=== PATIENT | male | born 1930 | race Caucasian/White ===

== ENCOUNTER 2017-07-05 04:36 | Observation (INO) ==
--- NOTE | 2017-07-05 04:48 | Emergency Department Note ---
Disposition Clinical Impression: ESRD (end stage renal disease), Community acquired pneumonia, Knee effusion, left, Atrial fibrillation Disposition: Admitted As Inpatient Condition: Good Referrals: NONE,PCP [Non-Partnered Physician] - Time of Disposition: 06:36 General Adult HPI - General Time Seen by Provider: 07/05/17 04:44 Source: patient, EMS Mode of arrival: EMS Limitations: no limitations Nursing Notes Reviewed: Yes Vital Signs Reviewed: Yes - History of Present Illness HPI Narrative: Patient presents to the ED with the chief complaint of dyspnea and left knee pain. Patient is a dialysis patient who dialyzes on Wednesday, Wednesday, Wednesday. States he has not missed his dialysis. He was woken up from sleep this morning with significant shortness of breath, which lasted about an hour and a half. During that time he had a very brief episode which she states was just 1 or 2 seconds of a sharp chest pain that went away immediately. States that the shortness of breath, was continuing, so he called EMS. By the time EMS got there, his shortness of breath is resolved. He states he feels back to his normal self. He is also complaining of left knee pain and swelling that was onset about a week and half ago. Reports he saw his primary care doctor and had an ultrasound that ruled out DVT. Denies any falls or trauma to the area. Reports the pain 6 out of 10 and 10 out of 10 when touching and moving his knee. No history of diabetes or coronary artery disease. He does take a baby aspirin daily, Lasix states he feels okay. No fever, chills, cough, abdominal pain, nausea, vomiting, diarrhea - Related Data Home Medications Medication Instructions Recorded Confirmed Aspirin Enteric Coated [Aspirin EC] 81 mg PO QAM 03/08/15 03/08/15 Calcium Acetate [Phos-LO] 667 mg PO DAILY 03/08/15 03/08/15 Cholecalciferol (Vitamin D3) 50,000 unit PO QAM 03/08/15 03/08/15 [Dialyvite Vitamin D3 Max] Metoprolol XL (24 HR) Succ [Toprol 25 mg PO QAM 03/08/15 03/08/15 XL] Previous Rx's Medication Instructions Recorded Cyclobenzaprine [Flexeril] 10 mg PO TID #20 tablet 03/04/15 TraMADol [Ultram] 50 mg PO TID #7 tablet 03/04/15 Epoetin Ramírez [Procrit] 10,000 unit SQ 3XW vial 03/13/15 Lidocaine Patch [Lidoderm 5% patch] 1 each TP DAILY #30 adh..patch 03/13/15 OxyCODONE/APAP 5/325 [Percocet 2 each PO Q6HR PRN #30 tablet 03/13/15 5/325 MG] Hydrocodone/Acetaminophen [[place] 1 tab PO TID PRN #15 tab 04/02/15 5-325 Tablet] Allergies Allergy/AdvReac Type Severity Reaction Status Date / Time No Known Allergies Allergy Verified 03/04/15 13:13 Review of Systems: As reviewed in the HPI. All other systems reviewed are negative or normal. Past Medical History - Past Medical History Attestation: Yes The following information was validated with the patient. Source: patient Medical history: Reports: dialysis, hypertension, renal disease Surgical history: Reports: orthopedic, other (right hip fracture repair) Psychiatric history: Reports: no psych history - Social History Smoking Status: Former smoker Smokeless Tobacco Status: No Alcohol use: Reports: none Drug use: Reports: none Physical Exam - General Limitations: no limitations General appearance: alert, in no apparent distress - Head Head exam: atraumatic, normocephalic, normal inspection - Eye Eye exam: Present: normal appearance, PERRL, EOMI - Chest Chest inspection: Present: normal inspection, symmetric chest wall rise - Respiratory Respiratory exam: Present: normal lung sounds bilaterally - Cardiovascular Cardiovascular exam: Present: regular rate, irregular rhythm - Abdominal Exam Abdominal exam: Present: soft, Non-Tender. Absent: tenderness, distention, guarding, rebound, rigidity - Extremities Exam Extremities exam: Present: other (Left arm dialysis fistula) - Expanded Lower Extremity Exam Knee exam: Present: tenderness, swelling, pain with varus, laxity with varus, knee extension intact. Absent: normal inspection, full ROM, deformity, crepitus , dislocation, erythema - Neurological Exam Neurological exam: Present: alert, oriented X3 - Psychiatric Psychiatric exam: Present: normal affect, normal mood - Skin Skin exam: Present: warm, dry, intact, normal color Course Course Narrative: Patient presenting with shortness of breath and a few episodes of chest pain. Does dialyze Wednesday, Wednesday, Wednesday and will be due today. Is having left knee pain. We will check labs, chest x-ray and x-rays knee. He is requesting that if anything needs to be done to his knee or if there is a fracture that he see Dr. Cummings as he has seen him previously and likes him. - Reevaluation(s) Reevaluation #1: Admitted to the hospital service under Dr. Santoro. 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 Time: 06:36 Vital Signs Temperature 99.8 F H 07/05/17 04:40 Pulse Rate 106 07/05/17 04:40 Respiratory Rate 20 07/05/17 04:40 Blood Pressure 180/156 07/05/17 04:40 O2 Sat by Pulse Oximetry 98 07/05/17 04:40 Temperature 99.8 F H 07/05/17 04:40 Pulse Rate 128 07/05/17 06:10 Respiratory Rate 20 07/05/17 06:10 Blood Pressure 178/82 07/05/17 06:10 O2 Sat by Pulse Oximetry 98 07/05/17 06:10 Oxygen Delivery Oxygen Delivery Nasal Cannula Medical Decision Making - Medical Records Medical records reviewed: Yes I reviewed the patient's medical records. - Lab Data Lab results reviewed: Yes I reviewed the patient's lab results. Result diagrams: 07/05/17 04:50 07/05/17 04:50 Lab Results 07/05/17 07/05/17 07/05/17 Range/Units 04:50 04:50 04:50 WBC 7.1 (4.3-11.1) K/mcL RBC 3.45 L (4.19-5.50) M/mcL Hgb 11.3 L (12.9-16.9) g/dL Hct 35.3 L (37.5-50.1) % MCV 102.3 H (83.0-100.0) fL MCH 32.8 (28.0-33.3) pg MCHC 32.0 (31.6-35.5) g/dL RDW 12.9 (11.5-14.5) % Plt Count 354 (140-400) K/mcL MPV 9.4 (9.4-12.4) fL Immature Gran % 0.6 (0-4) % Seg Neutrophils % 77.4 % Lymphocytes % 7.5 % Monocytes % 12.2 % Eosinophils % 1.7 % Basophils % 0.6 % Neutrophils # 5.5 (1.6-8.9) K/mcL Lymphocytes # 0.5 L (0.6-4.6) K/mcL Monocytes # 0.9 (0.0-1.3) K/mcL Eosinophils # 0.1 (0.0-0.6) K/mcL Basophils # 0.0 (0.0-0.2) K/mcL Sodium 136 (136-145) mEq/L Potassium 5.8 H (3.5-5.1) mEq/L Chloride 96 L (98-107) mEq/L Carbon Dioxide 29 (23-29) mEq/L BUN 48 H (8-23) mg/dL Creatinine 7.67 H (0.70-1.30) mg/dL Est GFR ( Amer) 8 L (> 60) Est GFR (Non-Af Amer) 7 L (> 60) BUN/Creatinine Ratio 6 (6-26) Glucose 116 H (70-105) mg/dL Calculated Osmolality 296 (280-300) Lactic Acid 1.0 (0.5-2.2) mmol/L Calcium 9.0 (8.6-10.3) mg/dL Phosphorus 3.4 (2.7-4.5) mg/dL Troponin I 0.03 (< 0.04) ng/mL B-Natriuretic Peptide (Less than 100) pg/mL Albumin 3.3 L (3.5-5.7) g/dL 07/05/17 Range/Units 04:50 WBC (4.3-11.1) K/mcL RBC (4.19-5.50) M/mcL Hgb (12.9-16.9) g/dL Hct (37.5-50.1) % MCV (83.0-100.0) fL MCH (28.0-33.3) pg MCHC (31.6-35.5) g/dL RDW (11.5-14.5) % Plt Count (140-400) K/mcL MPV (9.4-12.4) fL Immature Gran % (0-4) % Seg Neutrophils % % Lymphocytes % % Monocytes % % Eosinophils % % Basophils % % Neutrophils # (1.6-8.9) K/mcL Lymphocytes # (0.6-4.6) K/mcL Monocytes # (0.0-1.3) K/mcL Eosinophils # (0.0-0.6) K/mcL Basophils # (0.0-0.2) K/mcL Sodium (136-145) mEq/L Potassium (3.5-5.1) mEq/L Chloride (98-107) mEq/L Carbon Dioxide (23-29) mEq/L BUN (8-23) mg/dL Creatinine (0.70-1.30) mg/dL Est GFR ( Amer) (> 60) Est GFR (Non-Af Amer) (> 60) BUN/Creatinine Ratio (6-26) Glucose (70-105) mg/dL Calculated Osmolality (280-300) Lactic Acid (0.5-2.2) mmol/L Calcium (8.6-10.3) mg/dL Phosphorus (2.7-4.5) mg/dL Troponin I (< 0.04) ng/mL B-Natriuretic Peptide 905 H (Less than 100) pg/mL Albumin (3.5-5.7) g/dL - Radiology Data Radiology results reviewed: Yes I reviewed the patient's radiology results. - EKG Data EKG #1 EKG attestation: Yes I reviewed and interpreted this EKG. EKG results narrative: A. fib, rate 112, QRS 145, QTC 407, right axis deviation, right bundle branch block that is unchanged from previous, morphology is similar to previous from 2015
[2017-07-05 05:13] LABS: Basophils % 0.6 %; Eosinophils # 0.1 K/mcL (0.0-0.6); Eosinophils % 1.7 %; Hematocrit 35.3 % (37.5-50.1); Hemoglobin 11.3 g/dL (12.9-16.9); Immature Granulocytes % 0.6 % (0-4); Lymphocytes # 0.5 K/mcL (0.6-4.6); Lymphocytes % 7.5 %; Mean Corpuscular Hemoglobin 32.8 pg (28.0-33.3); Mean Corpuscular Volume 102.3 fL (83.0-100.0); Mean Platelet Volume 9.4 fL (9.4-12.4); Monocytes # 0.9 K/mcL (0.0-1.3); Monocytes % 12.2 %; Neutrophils # 5.5 K/mcL (1.6-8.9); Platelet Count 354 K/mcL (140-400); Red Blood Count 3.45 M/mcL (4.19-5.50); Red Cell Distribution Width 12.9 % (11.5-14.5); Segmented Neutrophils % 77.4 %
[2017-07-05 05:35] LABS: Troponin I 0.03 ng/mL (< 0.04)
[2017-07-05 05:39] LABS: Albumin 3.3 g/dL (3.5-5.7); Phosphorous 3.4 mg/dL (2.7-4.5); Potassium 5.8 mEq/L (3.5-5.1)
[2017-07-05] MEDS ORDERED: Azithromycin 500 MG in D5% in Water 250 ML IVPB ONE (06:21)
[2017-07-05] MEDS ORDERED: cefTRIAXone 1,000 MG in Water for inj. (sterile) 20 ML 10 ML IVPB ONE (06:21)
--- NOTE | 2017-07-05 06:33 | Emergency Department Note ---
Disposition Clinical Impression: ESRD (end stage renal disease), Community acquired pneumonia, Knee effusion, left, Atrial fibrillation Disposition: Admitted As Inpatient Condition: Good Referrals: NONE,PCP [Non-Partnered Physician] - General Adult HPI - General Chief complaint: ED Shortness of Breath/Dyspnea Time Seen by Provider: 07/05/17 04:44 Source: patient, EMS Mode of arrival: EMS Limitations: no limitations Nursing Notes Reviewed: Yes Vital Signs Reviewed: Yes - History of Present Illness Pain Scale: 9 - Related Data Home Medications Medication Instructions Recorded Confirmed Aspirin Enteric Coated [Aspirin EC] 81 mg PO QAM 03/08/15 03/08/15 Calcium Acetate [Phos-LO] 667 mg PO DAILY 03/08/15 03/08/15 Cholecalciferol (Vitamin D3) 50,000 unit PO QAM 03/08/15 03/08/15 [Dialyvite Vitamin D3 Max] Metoprolol XL (24 HR) Succ [Toprol 25 mg PO QAM 03/08/15 03/08/15 XL] Previous Rx's Medication Instructions Recorded Cyclobenzaprine [Flexeril] 10 mg PO TID #20 tablet 03/04/15 TraMADol [Ultram] 50 mg PO TID #7 tablet 03/04/15 Epoetin Ramírez [Procrit] 10,000 unit SQ 3XW vial 03/13/15 Lidocaine Patch [Lidoderm 5% patch] 1 each TP DAILY #30 adh..patch 03/13/15 OxyCODONE/APAP 5/325 [Percocet 2 each PO Q6HR PRN #30 tablet 03/13/15 5/325 MG] Hydrocodone/Acetaminophen [[place] 1 tab PO TID PRN #15 tab 04/02/15 5-325 Tablet] Allergies Allergy/AdvReac Type Severity Reaction Status Date / Time No Known Allergies Allergy Verified 03/04/15 13:13 Past Medical History - Past Medical History Medical history: Reports: dialysis, hypertension, renal disease Surgical history: Reports: orthopedic, other (right hip fracture repair) Psychiatric history: Reports: no psych history - Social History Smoking Status: Former smoker Smokeless Tobacco Status: No Alcohol use: Reports: none Drug use: Reports: none Physical Exam - General Limitations: no limitations General appearance: alert, in no apparent distress Course Vital Signs Temperature 99.8 F H 07/05/17 04:40 Pulse Rate 106 07/05/17 04:40 Respiratory Rate 20 07/05/17 04:40 Blood Pressure 180/156 07/05/17 04:40 O2 Sat by Pulse Oximetry 98 07/05/17 04:40 Temperature 99.8 F H 07/05/17 04:40 Pulse Rate 128 07/05/17 06:10 Respiratory Rate 20 07/05/17 06:10 Blood Pressure 178/82 07/05/17 06:10 O2 Sat by Pulse Oximetry 98 07/05/17 06:10 Oxygen Delivery Oxygen Delivery Nasal Cannula Medical Decision Making - Lab Data Result diagrams: 07/05/17 04:50 07/05/17 04:50 Lab Results 07/05/17 07/05/17 07/05/17 Range/Units 04:50 04:50 04:50 WBC 7.1 (4.3-11.1) K/mcL RBC 3.45 L (4.19-5.50) M/mcL Hgb 11.3 L (12.9-16.9) g/dL Hct 35.3 L (37.5-50.1) % MCV 102.3 H (83.0-100.0) fL MCH 32.8 (28.0-33.3) pg MCHC 32.0 (31.6-35.5) g/dL RDW 12.9 (11.5-14.5) % Plt Count 354 (140-400) K/mcL MPV 9.4 (9.4-12.4) fL Immature Gran % 0.6 (0-4) % Seg Neutrophils % 77.4 % Lymphocytes % 7.5 % Monocytes % 12.2 % Eosinophils % 1.7 % Basophils % 0.6 % Neutrophils # 5.5 (1.6-8.9) K/mcL Lymphocytes # 0.5 L (0.6-4.6) K/mcL Monocytes # 0.9 (0.0-1.3) K/mcL Eosinophils # 0.1 (0.0-0.6) K/mcL Basophils # 0.0 (0.0-0.2) K/mcL Sodium 136 (136-145) mEq/L Potassium 5.8 H (3.5-5.1) mEq/L Chloride 96 L (98-107) mEq/L Carbon Dioxide 29 (23-29) mEq/L BUN 48 H (8-23) mg/dL Creatinine 7.67 H (0.70-1.30) mg/dL Est GFR ( Amer) 8 L (> 60) Est GFR (Non-Af Amer) 7 L (> 60) BUN/Creatinine Ratio 6 (6-26) Glucose 116 H (70-105) mg/dL Calculated Osmolality 296 (280-300) Lactic Acid 1.0 (0.5-2.2) mmol/L Calcium 9.0 (8.6-10.3) mg/dL Phosphorus 3.4 (2.7-4.5) mg/dL Troponin I 0.03 (< 0.04) ng/mL B-Natriuretic Peptide (Less than 100) pg/mL Albumin 3.3 L (3.5-5.7) g/dL 07/05/17 Range/Units 04:50 WBC (4.3-11.1) K/mcL RBC (4.19-5.50) M/mcL Hgb (12.9-16.9) g/dL Hct (37.5-50.1) % MCV (83.0-100.0) fL MCH (28.0-33.3) pg MCHC (31.6-35.5) g/dL RDW (11.5-14.5) % Plt Count (140-400) K/mcL MPV (9.4-12.4) fL Immature Gran % (0-4) % Seg Neutrophils % % Lymphocytes % % Monocytes % % Eosinophils % % Basophils % % Neutrophils # (1.6-8.9) K/mcL Lymphocytes # (0.6-4.6) K/mcL Monocytes # (0.0-1.3) K/mcL Eosinophils # (0.0-0.6) K/mcL Basophils # (0.0-0.2) K/mcL Sodium (136-145) mEq/L Potassium (3.5-5.1) mEq/L Chloride (98-107) mEq/L Carbon Dioxide (23-29) mEq/L BUN (8-23) mg/dL Creatinine (0.70-1.30) mg/dL Est GFR ( Amer) (> 60) Est GFR (Non-Af Amer) (> 60) BUN/Creatinine Ratio (6-26) Glucose (70-105) mg/dL Calculated Osmolality (280-300) Lactic Acid (0.5-2.2) mmol/L Calcium (8.6-10.3) mg/dL Phosphorus (2.7-4.5) mg/dL Troponin I (< 0.04) ng/mL B-Natriuretic Peptide 905 H (Less than 100) pg/mL Albumin (3.5-5.7) g/dL Attestation Statement - Attestation Attestation: I, Juan Wade MD, personally evaluated this patient and discussed their management with the resident physician. I reviewed the resident's note and agree with the documented findings, medical decision making, and plan of care. 86-year-old male presents to the emergency department by ambulance with a complaint of severe left knee pain and swelling which started about 10 days prior to arrival. He was seen about one week ago at the ID and had an ultrasound of the leg with no blood clots. Patient states that tonight he had an acute onset of shortness of breath. Some chest discomfort. No definite fever. He called 911 and by the time the ambulance arrived shortness of breath had pretty much resolved. There has been a mild cough. On examination patient is a well-developed well-nourished elderly male in no acute distress. He is alert and oriented 3. There is no cyanosis or diaphoresis. Chest is nontender to palpation. Breath sounds are decreased but equal bilaterally with no rales or wheezes noted. Heart irregularly irregular with a mild tachycardia. Abdomen soft and nontender with normal bowel sounds. There is a large effusion of the left knee with tenderness to palpation and also pain with any movement or palpation. There is no erythema and it is not warm to touch. Neurovascular function is intact distally. Labs reviewed. Chest x-ray shows left basilar atelectasis versus pneumonia. X- ray of the left knee shows osteoarthritis and effusion with no fracture. EKG shows atrial fibrillation with RVR with ventricular rate of 112. Right bundle branch block. The hospitalist, Dr. Santoro, was consulted and accepted admission of the patient.
[2017-07-05] MEDS ORDERED: Naloxone 0.4 MG/ML INJ IVP PRN (07:43)
--- NOTE | 2017-07-05 08:07 | Internal Med History&Physical ---
Date of Encounter: 07/05/17 Time of Encounter: 08:05 Internal Medicine - H&P: HPI Chief complaint: knee pain History of present illness: Mr. Montes is a 86 year old male Past Med Surg Social Fam HX - Past Medical History Medical history: dialysis, hypertension, renal disease Psychiatric history: no psych history - Past Surgical History Surgical History: orthopedic, other - Social History Smoking Status: Former smoker Smokeless Tobacco Status: No Alcohol use: none Drug use: none - Family History Father Hx Family Cardiac Disorders: Yes ([place]) Mother Hx Family Cancer: Yes (Bone) Sister Hx Family Cancer: Yes (Breast) Brother Hx Family Cardiac Disorders: Yes ([place]) Internal Medicine - H&P: Meds Cyclobenzaprine [Flexeril] 10 mg PO TID #20 tablet 03/04/15 [Rx] TraMADol [Ultram] 50 mg PO TID #7 tablet 03/04/15 [Rx] Aspirin Enteric Coated [Aspirin EC] 81 mg PO QAM 03/08/15 [History] Calcium Acetate [Phos-LO] 667 mg PO DAILY 03/08/15 [History] Cholecalciferol (Vitamin D3) [Dialyvite Vitamin D3 Max] 50,000 unit PO QAM 03/08 [History] Metoprolol XL (24 HR) Succ [Toprol XL] 25 mg PO QAM 03/08/15 [History] Epoetin Ramírez [Procrit] 10,000 unit SQ 3XW vial 03/13/15 [Rx] Lidocaine Patch [Lidoderm 5% patch] 1 each TP DAILY #30 adh..patch 03/13/15 [Rx] OxyCODONE/APAP 5/325 [Percocet 5/325 MG] 2 each PO Q6HR PRN #30 tablet 03/13/15 [Rx] Hydrocodone/Acetaminophen [[place] 5-325 Tablet] 1 tab PO TID PRN #15 tab [Rx] 3 Allergy/AdvReac Type Severity Reaction Status Date / Time No Known Allergies Allergy Verified 03/04/15 13:13 All Systems PM: A 10-system review of systems was performed and is negative for pertinent findings except as documented above in the HPI. Review of systems: All systems reviewed and negative except for what is mentioned in history of present illness - Constitutional Vitals: Temp Pulse Resp BP Pulse Ox 99.8 F H 113 20 142/85 96 07/05/17 04:40 07/05/17 07:09 07/05/17 07:09 07/05/17 07:09 07/05/17 07:09 Vital signs as above Gen.: No acute distress, cooperative, able to speak in full sentences HEENT: Atraumatic, normocephalic, extraocular are intact, PERRL, there is no scleral icterus Neck: JVD no pain to palpation Heart: Normal S1-S2 regular rate and rhythm Lungs: Clear to auscultation Abdomen: Soft, nontender, nondistended, positive bowel sounds, no guarding, no rigidity Musculoskeletal: Left arm fistula, left knee palpable effusion, pain to palpation, no surrounding erythema, no warmth to palpation , no open wound over the knee , lower extremity edema Neuro: Nonfocal, no lateralization, comas are intact Skin: No new rash Psychiatry: Normal affect Internal Med - H&P Results - Labs CBC & Chem 7: 07/05/17 04:50 07/05/17 04:50 - Assessment and plan (1) Atrial fibrillation Current Visit: Yes Status: Acute Assessment and plan: History of atrial fibrillation Patient notes he has been on Coumadin in the past but due to internal bleeding this was discontinued. Patient notes that in the future will not restart a blood thinner due to history of internal bleeding requiring large volume blood transfusion Continuous cardiac technician (2) Community acquired pneumonia Current Visit: Yes Status: Acute (3) Knee effusion, left Current Visit: Yes Status: Acute (4) ESRD (end stage renal disease) Current Visit: Yes Status: Chronic (5) DVT prophylaxis Current Visit: No Status: Acute (6) Anemia Current Visit: No Status: Chronic Qualifiers: Anemia type: other cause Qualified Code(s): N18.9 - Chronic kidney disease , unspecified - Time Spent With Patient Total time spent is greater than 50% in coordination of care (as documented) at patient's floor/unit and/or counseling patient:
--- NOTE | 2017-07-05 08:24 | Nephrology Consult Note ---
Date of Encounter: 07/05/17 Time of Encounter: 08:21 Assessment and Plan (1) ESRD (end stage renal disease) Current Visit: Yes Status: Chronic Patient has end-stage renal disease. He is stable from a renal perspective. Blood pressure is controlled. Hemoglobin is 11.3. Potassium is 5.8 social dialyze today on a 2K bath. Orthopedic evaluation is pending. (2) Benign hypertension with ESRD (end-stage renal disease) Current Visit: Yes Status: Acute (3) Bilateral primary osteoarthritis of knee Current Visit: Yes Status: Acute (4) Knee effusion, left Current Visit: Yes Status: Acute (5) Atrial fibrillation Current Visit: Yes Status: Acute Qualifiers: Atrial fibrillation type: chronic Qualified Code(s): I48.2 - Chronic atrial fibrillation History of Present Illness - History of Present Illness This is an 86-year-old male's been followed for many years for end-stage renal disease. Patient receives dialysis every Wednesday and . Patient was admitted after presenting to the emergency room with a history of worsening left knee pain and swelling. Patient has a history of severe degenerative joint disease involving both of his knees. He has failed several conservative therapeutic approaches. Approximately 10 days ago or so he developed some swelling around the knee. X-ray shows he does have a joint effusion as well as evidence of severe osteoarthritis. Patient was having increasing pain and difficulty ventilating and subsequently came to the emergency room for further evaluation and management. Patient has some transient shortness of breath. Chest x-ray was reportedly abnormal. Patient was diagnosed with pneumonia based on chest x-ray findings. Patient denies any cough sputum production fever chills. He is no longer expressing any shortness of breath. Patient scheduled for his usual dialysis today. Past Med Surg Social Fam HX - Past Medical History Medical history: dialysis, hypertension, renal disease Psychiatric history: no psych history - Past Surgical History Surgical History: orthopedic, other - Social History Smoking Status: Former smoker Smokeless Tobacco Status: No Alcohol use: none Drug use: none - Family History Father Hx Family Cardiac Disorders: Yes ([place]) Mother Hx Family Cancer: Yes (Bone) Sister Hx Family Cancer: Yes (Breast) Brother Hx Family Cardiac Disorders: Yes ([place]) Medications and Allergies Cyclobenzaprine [Flexeril] 10 mg PO TID #20 tablet 03/04/15 [Rx] TraMADol [Ultram] 50 mg PO TID #7 tablet 03/04/15 [Rx] Aspirin Enteric Coated [Aspirin EC] 81 mg PO QAM 03/08/15 [History] Calcium Acetate [Phos-LO] 667 mg PO DAILY 03/08/15 [History] Cholecalciferol (Vitamin D3) [Dialyvite Vitamin D3 Max] 50,000 unit PO QAM 03/08 [History] Metoprolol XL (24 HR) Succ [Toprol XL] 25 mg PO QAM 03/08/15 [History] Epoetin Ramírez [Procrit] 10,000 unit SQ 3XW vial 03/13/15 [Rx] Lidocaine Patch [Lidoderm 5% patch] 1 each TP DAILY #30 adh..patch 03/13/15 [Rx] OxyCODONE/APAP 5/325 [Percocet 5/325 MG] 2 each PO Q6HR PRN #30 tablet 03/13/15 [Rx] Hydrocodone/Acetaminophen [[place] 5-325 Tablet] 1 tab PO TID PRN #15 tab [Rx] 3 Allergy/AdvReac Type Severity Reaction Status Date / Time No Known Allergies Allergy Verified 03/04/15 13:13 Review of Systems Constitutional: as per HPI Eyes: bilateral: blurred vision (patient denies), diplopia (patient denies) Nose, mouth and throat: no dizziness, no headache(s) Cardiovascular: dyspnea on exertion, no chest pain, no palpitations Respiratory: dyspnea on exertion Gastrointestinal: no abdominal pain, no change in bowel habits Musculoskeletal: as per HPI Musculoskeletal: left: knee pain, knee stiffness, knee swelling Integumentary: no hirsutism, no striae Neurological: as per HPI Psychiatric: no depression, no difficulty concentrating Endocrine: as per HPI Exam - Vital Signs Vital signs: Initial Vital Signs Temp Pulse Resp BP Pulse Ox 99.8 F H 106 20 180/156 98 07/05/17 04:40 07/05/17 04:40 07/05/17 04:40 07/05/17 04:40 07/05/17 04:40 Vital Signs - Last 8 Hours Pulse Resp BP Pulse Ox 07/05/17 07:09 113 20 142/85 96 Intake and Output 07/04/17 07/05/17 07/05/17 23:59 07:59 15:59 Intake Total 0 / 0 Output Total 0 / 0 Balance 0 / 0 Intake: Oral 0 / 0 Output: Urine 0 / 0 - General Appearance Exam: Patient is alert and oriented. He is in no acute distress. Lung sounds otherwise clear to auscultation. No wheezing rales or rhonchi. Heart irregular rate and rhythm consistent with atrial fibrillation. Abdomen shows bowel sounds braze masses in megaly or tenderness. The left knee has an obvious joint effusion. There is no redness nor erythema nor heat. There is some mild swelling of the left ankle. Right lower extremity does not have any significant edema. There is a functioning AV fistula in the left upper extremity. Results - Lab Results 07/05/17 04:50 07/05/17 04:50 Most recent lab results Calcium 9.0 mg/dL (8.6-10.3) 07/05/17 04:50 Phosphorus 3.4 mg/dL (2.7-4.5) 07/05/17 04:50 Consult Discharge Plan - Plan
[2017-07-05] MEDS ORDERED: 0.9 % Sodium Chloride 250 ML IVC PRN (08:26)
--- NOTE | 2017-07-05 09:30 | Internal Med History&Physical ---
Date of Encounter: 07/05/17 Time of Encounter: 09:27 Internal Medicine - H&P: HPI Chief complaint: left leg knee pain History of present illness: Mr. Montes is a 86 year old male history of end-stage renal disease, hypertension was has a complaint of left lower extremity edema particularly knee pain. Patient notes he has been battling left knee pain and swelling last week. Patient notes he was seen at the [facility] and had a left lower extremity ultrasound that was negative for DVT. Patient notes that he does have history of osteoarthritis of bilateral knees. Patient denies fever, chills or rigors. Patient actually denies cough or sputum production. He denies chest pain or shortness of breath, questioning. Patient denies orthopnea , PND. He denies abdominal pain, nausea vomiting. There is no melena or hematochezia. Patient voices no other concerns. Patient notes that reason he came to the hospital was for his left knee pain. Patient to be admitted for further evaluation. Past Med Surg Social Fam HX - Past Medical History Medical history: dialysis, hypertension, renal disease Psychiatric history: no psych history - Past Surgical History Surgical History: orthopedic, other - Social History Smoking Status: Former smoker Smokeless Tobacco Status: No Alcohol use: none Drug use: none - Family History Father Hx Family Cardiac Disorders: Yes ([place]) Mother Hx Family Cancer: Yes (Bone) Sister Hx Family Cancer: Yes (Breast) Brother Hx Family Cardiac Disorders: Yes ([place]) Internal Medicine - H&P: Meds Aspirin Enteric Coated [Aspirin EC] 81 mg PO QAM 03/08/15 [History] Calcium Acetate [Phos-LO] 667 mg PO DAILY 03/08/15 [History] Cetirizine HCl [Zyrtec] 10 mg PO DAILY 07/05/17 [History] Cholecalciferol (D-3) [Vitamin D] 1,000 unit PO DAILY 07/05/17 [History] Cinacalcet [Sensipar] 30 mg PO MOWEFR 07/05/17 [History] Folic Acid/Vit Bcomp,C [Dialyvite Tablet] 1 tab PO DAILY 07/05/17 [History] Metoprolol [Lopressor] 25 mg PO BID 07/05/17 [History] 3 Allergy/AdvReac Type Severity Reaction Status Date / Time No Known Allergies Allergy Verified 03/04/15 13:13 All Systems PM: A 10-system review of systems was performed and is negative for pertinent findings except as documented above in the HPI. Review of systems: All systems reviewed and negative except what is mentioned in history of present illness - Constitutional Vitals: Temp Pulse Resp BP Pulse Ox 99.8 F H 113 20 142/85 96 07/05/17 04:40 07/05/17 07:09 07/05/17 07:09 07/05/17 07:09 07/05/17 07:09 Vital signs as above Gen.: Present distress, cooperative, able to speak in full sentences HEENT: Atraumatic, normocephalic, extra movements are intact, PERRL, there is no scleral icterus Neck: No JVD, no pinna palpation, full range of motion Heart: Irregularly irregular Lungs: His breath sounds in bases, rales or rhonchi appreciated Abdomen: Soft, nontender, nondistended, positive bowel sounds, no guarding, no rigidity Musculoskeletal: Patient moves all 4 extremities freely,left knee joint effusion , no overlying signs of cellulitis, bilateral pedal edema appears at baseline neuro: non focal, no lateralization , CN intact Psychiatry: Normal affect Internal Med - H&P Results - Labs CBC & Chem 7: 07/05/17 04:50 07/05/17 04:50 Labs: Cardiac Enzymes 07/05/17 Range/Units 08:03 Troponin I 0.04 H* (< 0.04) ng/mL - Assessment and plan (1) Atrial fibrillation Current Visit: Yes Status: Acute Assessment and plan: History of atrial fibrillation Patient not on anticoagulation due to history of internal bleeding per patient report. rate controlled at this time. Elevated troponin is flat, likely secondary to renal failure , patient when asked denies every having chest pain or anginal equivalent. Qualifiers: Atrial fibrillation type: chronic Qualified Code(s): I48.2 - Chronic atrial fibrillation (2) Community acquired pneumonia Current Visit: Yes Status: Acute Assessment and plan: Patient diagnosed with community acquired pneumonia in the emergency department At this time patient denies cough or sputum production. Denies shortness of breath. X-ray shows left basilar atelectasis versus pneumonia. Patient has received empiric antibiotics in the emergency department. Given patient denies chest symptoms at this time, we will repeat chest x-ray versus noncontrast CT scan after dialysis. Patient remains afebrile, without respirator symptoms, without leukocytosis, without fever. Check respiratory viral panel Further recommendations pending above Qualifiers: Qualified Code(s): J18.9 - Pneumonia, unspecified organism (3) Knee effusion, left Current Visit: Yes Status: Acute Assessment and plan: Left knee joint effusion. I have spoken with who will evaluate patient today in consultation. Recommendations appreciated. Patient has history of osteoarthritis and uses likely an exacerbation At this time there is no fever, no leukocytosis. No overlying signs of cellulitis. Patient denies fall or trauma to his left knee, no evidence of ecchymosis, patient not on anticoagulation. Patient notes symptoms have been ongoing for approximately 1 week There is also some lower extremity edema. The left leg and patientwas evaluated at the [place] with a venous ultrasound. Patient notes ultrasound was negative for DVT per patient report. (4) ESRD (end stage renal disease) Current Visit: Yes Status: Chronic Assessment and plan: ESRD on hemodialysis Nephrology consulted (5) DVT prophylaxis Current Visit: No Status: Acute Assessment and plan: SCD's for DVT prophylaxis Patient notes he had LLE US last week at [place] [facility] for LLE edema, negative for DVT. (6) Anemia Current Visit: No Status: Chronic Assessment and plan: History of internal bleeding per patient report Anemia likely multifactorial, No signs of bleeding at this time Monitor CBC Qualifiers: Anemia type: other cause Qualified Code(s): D64.89 - Other specified anemias - Time Spent With Patient Total time spent is greater than 50% in coordination of care (as documented) at patient's floor/unit and/or counseling patient:
[2017-07-05 09:37] LABS: Hepatitis B Surface Antibody 1.13 mIU/mL; Hepatitis B Surface Antigen Nonreactive (Nonreactive)
[2017-07-05] MEDS ORDERED: 0.9 % Sodium Chloride 1,000 ML ONE (14:59)
[2017-07-05 17:11] LABS: Adenovirus Not Detected (Not Detect); Bordetella Pertussis Not Detected (Not Detect); Chlamydophila pneumoniae Not Detected (Not Detect); Coronavirus 229E Not Detected (Not Detect); Coronavirus HKU1 Not Detected (Not Detect); Coronavirus NL63 Not Detected (Not Detect); Coronavirus OC43 Not Detected (Not Detect); Human Metapneumovirus Not Detected (Not Detect); Human Rhinovirus/Enterovirus Not Detected (Not Detect); Influenza A Subtype 2009 H1 Not Detected (Not Detect); Influenza A Untypeable Not Detected (Not Detect); Influenza B Not Detected (Not Detect); Mycoplasma pneumoniae Not Detected (Not Detect); Parainfluenza Virus 1 Not Detected (Not Detect); Parainfluenza Virus 2 Not Detected (Not Detect); Parainfluenza Virus 3 Not Detected (Not Detect); Parainfluenza Virus 4 Not Detected (Not Detect); Respiratory Syncytial Virus Not Detected (Not Detect)
--- NOTE | 2017-07-05 21:21 | Orthopedic Consult Note ---
Date of Encounter: 07/05/17 Time of Encounter: 21:19 History of Present Illness HPI: Mr. Montes is a 86 year old male Past Med Surg Social Fam HX - Past Medical History Medical history: dialysis, hypertension, renal disease Psychiatric history: no psych history - Past Surgical History Surgical History: orthopedic, other - Social History Smoking Status: Former smoker Smokeless Tobacco Status: No Alcohol use: none Drug use: none - Family History Father Hx Family Cardiac Disorders: Yes ([place]) Mother Hx Family Cancer: Yes (Bone) Sister Hx Family Cancer: Yes (Breast) Brother Hx Family Cardiac Disorders: Yes ([place]) Medications and Allergies Aspirin Enteric Coated [Aspirin EC] 81 mg PO QAM 03/08/15 [History] Calcium Acetate [Phos-LO] 667 mg PO DAILY 03/08/15 [History] Cetirizine HCl [Zyrtec] 10 mg PO DAILY 07/05/17 [History] Cholecalciferol (D-3) [Vitamin D] 1,000 unit PO DAILY 07/05/17 [History] Cinacalcet [Sensipar] 30 mg PO MOWEFR 07/05/17 [History] Folic Acid/Vit Bcomp,C [Dialyvite Tablet] 1 tab PO DAILY 07/05/17 [History] Metoprolol [Lopressor] 25 mg PO BID 07/05/17 [History] 3 Allergy/AdvReac Type Severity Reaction Status Date / Time No Known Allergies Allergy Verified 03/04/15 13:13 All Systems Reviewed: The remainder of the systems were reviewed and are negative Physical Exam - Constitutional Vitals: Temp Pulse Resp BP Pulse Ox 97.6 F 123 17 132/75 93 07/05/17 20:33 07/05/17 20:33 07/05/17 20:33 07/05/17 20:33 07/05/17 20:33 Results - Labs Result Diagrams: 07/05/17 04:50 07/05/17 04:50 Labs: Abnormal lab results RBC 3.45 M/mcL (4.19-5.50) L 07/05/17 04:50 Hgb 11.3 g/dL (12.9-16.9) L 07/05/17 04:50 Hct 35.3 % (37.5-50.1) L 07/05/17 04:50 MCV 102.3 fL (83.0-100.0) H 07/05/17 04:50 Lymphocytes # 0.5 K/mcL (0.6-4.6) L 07/05/17 04:50 Potassium 5.8 mEq/L (3.5-5.1) H 07/05/17 04:50 Chloride 96 mEq/L (98-107) L 07/05/17 04:50 BUN 48 mg/dL (8-23) H 07/05/17 04:50 Creatinine 7.67 mg/dL (0.70-1.30) H 07/05/17 04:50 Est GFR ( Amer) 8 (> 60) L 07/05/17 04:50 Est GFR (Non-Af Amer) 7 (> 60) L 07/05/17 04:50 Glucose 116 mg/dL (70-105) H 07/05/17 04:50 POC Glucose 106 mg/dL (70-99) H 07/05/17 11:01 B-Natriuretic Peptide 905 pg/mL (Less than 100) H 07/05/17 04:50 Albumin 3.3 g/dL (3.5-5.7) L 07/05/17 04:50 All other labs normal. - Diagnostic results Knee x-ray: image reviewed Consult Discharge Plan - Plan Referrals: Rolando Mack DO [Primary Care Provider] -
--- NOTE | 2017-07-05 21:34 | Orthopedics Progress Note ---
Date of Encounter: 07/05/17 Time of Encounter: 21:27 Subjective Principal diagnosis: Left knee pain Interval history: Orthopedic consult/unable to dictate under consult heading Mr. Sunil Montes's a very pleasant 86-year-old gentleman well known to me from previous treatment of both a right hip fracture requiring surgery nearly 5 years ago as well as more recent treatment for bilateral knee osteoarthritis. The patient states that about 10 days ago he awoke with left knee pain. The patient states that he did nothing different the day before. He did not have any swelling initially. The patient however had extreme difficulty with activities including walking. He states that all about 3 days later he developed swelling in the left knee. He denies any acute trauma. Denies any fevers shakes chills. The patient has had previous treatment in the form of steroid injections and viscose supplementation in the past with limited relief. At one time we were considering proceeding with total knee arthroplasty. I have reviewed the patient's current history and physical exam including medical history. Pertinent orthopedic examination reveals bilateral varus knees. Left knee shows a moderate effusion. There is no evidence of erythema or other signs suggestive of an infection. The patient is quite tender along the lateral side of the knee. Positive lateral Apley's. Some medial joint line tenderness. Examination is somewhat limited due to the pain elicited. Laboratory data includes a normal WBC. No evidence of an infectious agent on serology testing. I reviewed an x-ray of the knee. This reveals an end stage arthritic knee with bone to bone contact in both the medial compartment and the patellofemoral joint. These are similar to x-rays obtained in my office over a year ago. Impression: Left knee effusion secondary to end-stage osteoarthritis Recommendation: I discussed this at length with the patient. I do not identify any evidence to suggest that we are dealing with an infection in the knee. For treatment purposes if there are no contraindications, I would consider proceeding with a intra-articular steroid injection. Can do this after approval from the medical service has been obtained. Thank you very much for allowing me to see care for Mr. Montes. Sincerely, Eilseo Cummings,DO Objective Vital signs: Vital Signs Temp Pulse Resp BP Pulse Ox 07/05/17 20:33 97.6 F 123 17 132/75 93 07/05/17 19:10 97.6 F 15 139/70 07/05/17 18:55 123/63 07/05/17 18:40 146/62 07/05/17 18:25 145/67 07/05/17 18:10 134/68 07/05/17 17:55 137/71 07/05/17 17:40 141/66 07/05/17 17:25 152/72 07/05/17 17:10 172/74 07/05/17 16:55 172/79 07/05/17 16:40 162/72 07/05/17 16:25 173/82 07/05/17 16:10 97.4 F L 18 172/99 07/05/17 10:54 97.4 F L 122 20 97 07/05/17 07:09 113 20 142/85 96 Intake and Output 07/05/17 07/05/17 07/05/17 07:59 15:59 23:59 Intake Total 0 / 0 720 / 720 Output Total 0 / 0 3600 / 3600 Balance 0 / 0 -2880 / -2880 Intake: Oral 0 / 0 120 / 120 Intake, Rinseback and Flushes 600 / 600 Output: Urine 0 / 0 0 / 0 Total Dialysis (HD) Output 3600 / 3600 Other: Meal Dinner Percent of Meal Consumed 90% # Voids 0 # Bowel Movements 0 Blood Glucose* 106 Hemodialysis Net Fluid Removed 3000 (mL) - Diagnostic Results Knee x-ray: image reviewed - Labs CBC & BMP: 07/05/17 04:50 07/05/17 04:50 Labs: Abnormal lab results RBC 3.45 M/mcL (4.19-5.50) L 07/05/17 04:50 Hgb 11.3 g/dL (12.9-16.9) L 07/05/17 04:50 Hct 35.3 % (37.5-50.1) L 07/05/17 04:50 MCV 102.3 fL (83.0-100.0) H 07/05/17 04:50 Lymphocytes # 0.5 K/mcL (0.6-4.6) L 07/05/17 04:50 Potassium 5.8 mEq/L (3.5-5.1) H 07/05/17 04:50 Chloride 96 mEq/L (98-107) L 07/05/17 04:50 BUN 48 mg/dL (8-23) H 07/05/17 04:50 Creatinine 7.67 mg/dL (0.70-1.30) H 07/05/17 04:50 Est GFR ( Amer) 8 (> 60) L 07/05/17 04:50 Est GFR (Non-Af Amer) 7 (> 60) L 07/05/17 04:50 Glucose 116 mg/dL (70-105) H 07/05/17 04:50 POC Glucose 106 mg/dL (70-99) H 07/05/17 11:01 B-Natriuretic Peptide 905 pg/mL (Less than 100) H 07/05/17 04:50 Albumin 3.3 g/dL (3.5-5.7) L 07/05/17 04:50 Consult Discharge Plan - Plan Referrals: Rolando Mack DO [Primary Care Provider] -
[2017-07-05] MEDS ORDERED: *HR* Metoprolol 5 MG/5 ML VIAL IVP ONE (23:39)
[2017-07-06 05:42] LABS: Basophils # 0.1 K/mcL (0.0-0.2); Basophils % 0.7 %; Eosinophils # 0.1 K/mcL (0.0-0.6); Hematocrit 35.7 % (37.5-50.1); Hemoglobin 11.2 g/dL (12.9-16.9); Immature Granulocytes % 0.4 % (0-4); Lymphocytes # 0.5 K/mcL (0.6-4.6); Lymphocytes % 6.9 %; Mean Corpuscular HGB Conc 31.4 g/dL (31.6-35.5); Mean Corpuscular Hemoglobin 31.9 pg (28.0-33.3); Mean Corpuscular Volume 101.7 fL (83.0-100.0); Mean Platelet Volume 9.3 fL (9.4-12.4); Monocytes # 0.9 K/mcL (0.0-1.3); Monocytes % 13.5 %; Neutrophils # 5.4 K/mcL (1.6-8.9); Platelet Count 342 K/mcL (140-400); Red Blood Count 3.51 M/mcL (4.19-5.50); Segmented Neutrophils % 77.5 %
[2017-07-06 05:48] LABS: INR 1.4; Prothrombin Time 15.1 Seconds (9.4-12.1)
[2017-07-06 06:00] LABS: Albumin/Globulin Ratio 0.8 (1.1-2.2); Bilirubin,Total 0.6 mg/dL (0.3-1.0); Calcium 8.8 mg/dL (8.6-10.3); Globulin 3.9 g/dL (2.4-3.5); Potassium 4.8 mEq/L (3.5-5.1); Total Protein 6.9 g/dL (6.4-8.9)
--- NOTE | 2017-07-06 09:35 | Electrocardiograph Report ---
[address] [address] Test Date: 2017-07-05 Pat Name: Sunil Montes Department: 103 Room: 2A32 Gender: M Casting Inspector: TRUE : 1930 Requested By: [id number] Order Number: [id number] Reading MD: Rachelle Burnett Measurements Intervals Dawson Rate: 112 P: AK: 0 QRS: 111 QRSD: 145 T: -6 QT: 341 QTc: 407 Interpretive Statements ATRIAL FIBRILLATION WITH RAPID VENTRICULAR RESPONSE RIGHT AXIS DEVIATION [QRS AXIS > 100] RIGHT BUNDLE BRANCH BLOCK [120+ ms QRS DURATION, UPRIGHT V1, 40+ ms S IN I/aVL/V4/V5/V6] Electronically Signed On 07-06-2017 9:34:25 EDT by Rachelle Burnett
--- NOTE | 2017-07-06 11:05 | Internal Med Progress Note ---
Date of Encounter: 07/06/17 Time of Encounter: 11:03 - Assessment and plan (1) Knee effusion, left Current Visit: Yes Status: Acute Assessment and plan: Orthopedics consulted. Okay to give steroids injections from my standpoint's. I want to talk to orthopedic to see if they want any further imaging including an MRI. Patient is not able to bend his left knee at all. (2) Atrial fibrillation Current Visit: Yes Status: Acute Assessment and plan: History of atrial fibrillation. He is not on anticoagulation due to history of internal bleeding. His heart rate is in the 130s and is in A. fib. I have restarted his beta kaya. We will see what his heart rate does the rest of the day. We will monitor. Qualifiers: Atrial fibrillation type: chronic Qualified Code(s): I48.2 - Chronic atrial fibrillation (3) Anemia Current Visit: No Status: Chronic Assessment and plan: History of internal bleeding per patient report Anemia likely multifactorial, No signs of bleeding at this time Monitor CBC Qualifiers: Anemia type: other cause Qualified Code(s): D64.89 - Other specified anemias (4) ESRD (end stage renal disease) Current Visit: Yes Status: Chronic Assessment and plan: ESRD on hemodialysis Nephrology consulted (5) Community acquired pneumonia Current Visit: Yes Status: Acute Assessment and plan: Received antibiotics in the ED. No signs of an infection on labs or symptoms arise. We will hold off on further antibiotics. Qualifiers: Qualified Code(s): J18.9 - Pneumonia, unspecified organism (6) DVT prophylaxis Current Visit: No Status: Acute Assessment and plan: SCD's for DVT prophylaxis Patient notes he had LLE US last week at [facility] for LLE edema, negative for DVT. - Time Spent With Patient Total time spent is greater than 50% in coordination of care (as documented) at patient's floor/unit and/or counseling patient: - Subjective Interval history: Patient was seen and examined. No acute events. His heart rate is in the 130s and A. fib however he has a history of it. He has not received his beta kaya today. Admitted with left knee swelling that has been going on for about a week or so. It was sudden with no history of trauma. Afebrile. - Constitutional Vitals: Temp Pulse Resp BP Pulse Ox 97.8 F 130 18 162/72 94 07/06/17 10:46 07/06/17 10:46 07/06/17 10:46 07/06/17 10:46 07/06/17 10:46 Exam: GEN: NAD CVS: RRR. S1, S2, No m/r/g RESP: CTAB ABD: Soft, NT, ND, +BS EXT: Bilateral knee swelling noted more prominent on the left knee medially.. 2 + DP. No rashes NEURO: Nonfocal Internal Medicine: Result - Labs CBC & Chem 7: 07/06/17 05:31 07/06/17 05:31 Labs: Short CBC 07/06/17 Range/Units 05:31 WBC 7.0 (4.3-11.1) K/mcL Hgb 11.2 L (12.9-16.9) g/dL Hct 35.7 L (37.5-50.1) % Plt Count 342 (140-400) K/mcL Neutrophils # 5.4 (1.6-8.9) K/mcL BMP 07/06/17 05:31 Sodium 137 Potassium 4.8 Chloride 94 L Carbon Dioxide 32 H BUN 27 H Creatinine 5.13 H Glucose 122 H Calcium 8.8 Cardiac Enzymes 07/05/17 07/05/17 Range/Units 13:57 20:07 Troponin I 0.03 0.03 (< 0.04) ng/mL Liver Function 07/06/17 Range/Units 05:31 Total Bilirubin 0.6 (0.3-1.0) mg/dL AST 17 (13-39) Units/L ALT 9 (7-52) Units/L Alkaline Phosphatase 94 (34-104) Units/L Albumin 3.0 L (3.5-5.7) g/dL - ABG Interpretation ABG results: PT/INR, D-dimer PT 15.1 Seconds (9.4-12.1) H 07/06/17 05:31 Consult Discharge Plan - Plan Referrals: Rolando Mack DO [Primary Care Provider] -
[2017-07-06] MEDS: Cholecalciferol (D-3) 1,000 UNIT TABLET PO SCH (12:28)
[2017-07-06] MEDS: Loratadine 10 MG TABLET PO SCH (12:28)
[2017-07-06] MEDS: Aspirin Enteric Coated 81 MG Tablet PO SCH (12:28)
[2017-07-06] MEDS: Calcium Acetate 667 MG CAPSULE PO SCH (12:28)
[2017-07-06] MEDS ORDERED: Lidocaine 1% 20 ML MDV ID ONE ×2 (16:31→22:45)
[2017-07-06] MEDS ORDERED: MethylPREDNISolone Acet(DEPOT) 80 MG/ML VIAL INTRAART ONE (16:33)
[2017-07-06] MEDS ORDERED: Dexamethasone 4 MG/ML VIAL IVP ONE ×2 (16:34→22:45)
[2017-07-06] MEDS: Multivit/Ca/Min/Fe/FA 1 TAB TABLET PO SCH (17:27)
--- NOTE | 2017-07-06 23:32 | Orthopedics Progress Note ---
Date of Encounter: 07/06/17 Time of Encounter: 23:30 Subjective Principal diagnosis: Left knee pain Interval history: Orthopedic consult/unable to dictate under consult heading Mr. Sunil Montes's a very pleasant 86-year-old gentleman well known to me from previous treatment of both a right hip fracture requiring surgery nearly 5 years ago as well as more recent treatment for bilateral knee osteoarthritis. The patient states that about 10 days ago he awoke with left knee pain. The patient states that he did nothing different the day before. He did not have any swelling initially. The patient however had extreme difficulty with activities including walking. He states that all about 3 days later he developed swelling in the left knee. He denies any acute trauma. Denies any fevers shakes chills. The patient has had previous treatment in the form of steroid injections and viscose supplementation in the past with limited relief. At one time we were considering proceeding with total knee arthroplasty. I have reviewed the patient's current history and physical exam including medical history. Pertinent orthopedic examination reveals bilateral varus knees. Left knee shows a moderate effusion. There is no evidence of erythema or other signs suggestive of an infection. The patient is quite tender along the lateral side of the knee. Positive lateral Apley's. Some medial joint line tenderness. Examination is somewhat limited due to the pain elicited. Laboratory data includes a normal WBC. No evidence of an infectious agent on serology testing. I reviewed an x-ray of the knee. This reveals an end stage arthritic knee with bone to bone contact in both the medial compartment and the patellofemoral joint. These are similar to x-rays obtained in my office over a year ago. Impression: Left knee effusion secondary to end-stage osteoarthritis Recommendation: I discussed this at length with the patient. I do not identify any evidence to suggest that we are dealing with an infection in the knee. For treatment purposes if there are no contraindications, I would consider proceeding with a intra-articular steroid injection. Can do this after approval from the medical service has been obtained. Thank you very much for allowing me to see care for Mr. Montes. Sincerely, Eliseo Cummings,DO 07/06/2017 patient continues to have left knee pain. Informed consent was obtained for arthrocentesis and steroid injection. Leg was prepped with alcohol followed by infiltration of the lateral suprapatellar region with approximately 5 mL's of 1% lidocaine solution. The leg was now prepped with ChloraPrep. Arthrocentesis was performed with return of only about 10 mL's of clear thick korin fluid. The knee was then instilled with approximately 5 mL's of 1% lidocaine, right ear milligrams of Depo-Medrol and 8 mg of Decadron solution. Needle was withdrawn and sterile Band-Aid was applied. Patient tolerated the procedure without difficulty. Encourage patient to move the knee. Utilize ice offenders any pain with for the next several days. Objective Vital signs: Vital Signs Temp Pulse Resp BP Pulse Ox 07/06/17 20:48 96 07/06/17 20:18 97.9 F 97 18 124/71 96 07/06/17 15:30 97.9 F 116 17 126/63 93 07/06/17 10:46 97.8 F 130 18 162/72 94 07/06/17 07:02 98.0 F 129 18 141/77 95 07/06/17 04:22 97.7 F 108 18 163/71 93 07/06/17 00:45 113 17 122/69 93 07/06/17 00:15 103 17 130/72 92 Intake and Output 07/06/17 07/06/17 07/06/17 07:59 15:59 23:59 Intake Total 480 / 480 120 / 120 Output Total 0 / 0 Balance 480 / 480 120 / 120 Intake: Oral 480 / 480 120 / 120 Output: Urine 0 / 0 Left Nephrostomy 0 / 0 Other: Meal Lunch Dinner Percent of Meal Consumed 40% 10% Stool Size Moderate Stool Consistency soft Stool Characteristics Normal for Patient Stool Color Brown # Bowel Movements 1 0 Weight 71.5 kg Patient Weight 07/06/17 23:59 Weight 71.5 kg - Labs CBC & BMP: 07/06/17 05:31 07/06/17 05:31 Labs: Abnormal lab results RBC 3.51 M/mcL (4.19-5.50) L 07/06/17 05:31 Hgb 11.2 g/dL (12.9-16.9) L 07/06/17 05:31 Hct 35.7 % (37.5-50.1) L 07/06/17 05:31 MCV 101.7 fL (83.0-100.0) H 07/06/17 05:31 MCHC 31.4 g/dL (31.6-35.5) L 07/06/17 05:31 MPV 9.3 fL (9.4-12.4) L 07/06/17 05:31 Lymphocytes # 0.5 K/mcL (0.6-4.6) L 07/06/17 05:31 PT 15.1 Seconds (9.4-12.1) H 07/06/17 05:31 Chloride 94 mEq/L (98-107) L 07/06/17 05:31 Carbon Dioxide 32 mEq/L (23-29) H 07/06/17 05:31 BUN 27 mg/dL (8-23) H 07/06/17 05:31 Creatinine 5.13 mg/dL (0.70-1.30) H 07/06/17 05:31 Est GFR ( Amer) 13 (> 60) L 07/06/17 05:31 Est GFR (Non-Af Amer) 11 (> 60) L 07/06/17 05:31 BUN/Creatinine Ratio 5 (6-26) L 07/06/17 05:31 Glucose 122 mg/dL (70-105) H 07/06/17 05:31 POC Glucose 106 mg/dL (70-99) H 07/05/17 11:01 B-Natriuretic Peptide 905 pg/mL (Less than 100) H 07/05/17 04:50 Albumin 3.0 g/dL (3.5-5.7) L 07/06/17 05:31 Globulin 3.9 g/dL (2.4-3.5) H 07/06/17 05:31 Albumin/Globulin Ratio 0.8 (1.1-2.2) L 07/06/17 05:31 HDL Cholesterol 31 mg/dL (40-59) L 07/06/17 05:31 Consult Discharge Plan - Plan Referrals: Rolando Mack DO [Primary Care Provider] - 07/15/17 1:30 pm (Please follow up as schedule...)
[2017-07-07 06:57] LABS: Basophils % 0.2 %; Hematocrit 35.7 % (37.5-50.1); Hemoglobin 11.2 g/dL (12.9-16.9); Immature Granulocytes % 0.4 % (0-4); Lymphocytes # 0.2 K/mcL (0.6-4.6); Mean Corpuscular HGB Conc 31.4 g/dL (31.6-35.5); Mean Corpuscular Hemoglobin 31.5 pg (28.0-33.3); Mean Corpuscular Volume 100.6 fL (83.0-100.0); Mean Platelet Volume 9.6 fL (9.4-12.4); Monocytes # 0.1 K/mcL (0.0-1.3); Monocytes % 2.6 %; Neutrophils # 5.1 K/mcL (1.6-8.9); Platelet Count 317 K/mcL (140-400); Red Blood Count 3.55 M/mcL (4.19-5.50); Segmented Neutrophils % 92.8 %
[2017-07-07 07:32] LABS: Calcium 8.8 mg/dL (8.6-10.3); Magnesium 2.1 mg/dL (1.6-2.6); Potassium 5.9 mEq/L (3.5-5.1)
[2017-07-07] MEDS ORDERED: 0.9 % Sodium Chloride 250 ML IVC PRN (08:28)
--- NOTE | 2017-07-07 08:28 | Nephrology Progress Note ---
Date of Encounter: 07/07/17 Time of Encounter: 08:26 - Assessment and Plan (1) ESRD (end stage renal disease) Current Visit: Yes Status: Chronic Patient will undergo dialysis today. Potassium is 5.9 so he will have a 2K bath. (2) Benign hypertension with ESRD (end-stage renal disease) Current Visit: Yes Status: Acute (3) Bilateral primary osteoarthritis of knee Current Visit: Yes Status: Acute (4) Knee effusion, left Current Visit: Yes Status: Acute (5) Atrial fibrillation Current Visit: Yes Status: Acute Qualifiers: Atrial fibrillation type: chronic Qualified Code(s): I48.2 - Chronic atrial fibrillation Subjective Principal diagnosis: Left knee pain Interval history: Patient underwent aspiration of his knee joint yesterday. He reports he has less discomfort. He has not been up walking as of yet. He scheduled her usual dialysis today. Objective - Vital Signs Vital signs: Vital Signs Temp Pulse Resp BP Pulse Ox 07/07/17 07:08 97.6 F 81 16 129/61 97 07/07/17 05:24 97.7 F 89 16 127/71 90 07/06/17 23:42 98.1 F 99 17 118/74 96 07/06/17 20:48 96 07/06/17 20:18 97.9 F 97 18 124/71 96 07/06/17 15:30 97.9 F 116 17 126/63 93 07/06/17 10:46 97.8 F 130 18 162/72 94 Intake and Output 07/06/17 07/07/17 07/07/17 23:59 07:59 15:59 Intake Total 770 / 770 0 / 0 Output Total 0 / 0 0 / 0 Balance 770 / 770 0 / 0 Intake: Oral 270 / 270 0 / 0 Free Water 500 / 500 Output: Urine 0 / 0 0 / 0 Left Nephrostomy 0 / 0 Other: Meal Dinner Percent of Meal Consumed 10% # Bowel Movements 0 Weight 75.2 kg Patient Weight 07/07/17 23:59 Weight 75.2 kg - Lab 07/07/17 06:29 07/07/17 06:29 Most recent lab results Calcium 8.8 mg/dL (8.6-10.3) 07/07/17 06:29 Phosphorus 3.4 mg/dL (2.7-4.5) 07/05/17 04:50 Magnesium 2.1 mg/dL (1.6-2.6) 07/07/17 06:29 Consult Discharge Plan - Plan Referrals: Rolando Mack DO [Primary Care Provider] - 07/15/17 1:30 pm (Please follow up as schedule...)
--- NOTE | 2017-07-07 09:11 | Discharge Summary ---
Orders not resulted at time of discharge: Pending orders 07/05/17 09:21 Legionella Antigen [RM] Stat S. Pneumoniae Antigen [RM] Stat 07/05/17 15:20 Culture,Throat [RM] Routine Streptococcus A Rapid Test [RM] Routine Date of Encounter: 07/07/17 Time of Encounter: 09:09 - Discharge Diagnosis (1) Knee effusion, left Priority: Primary Status: Acute (2) Atrial fibrillation Priority: Secondary Status: Acute Qualifiers: Atrial fibrillation type: chronic Qualified Code(s): I48.2 - Chronic atrial fibrillation (3) Anemia Priority: Secondary Status: Chronic Qualifiers: Anemia type: unspecified type Qualified Code(s): D64.9 - Anemia, unspecified (4) ESRD (end stage renal disease) Priority: Secondary Status: Chronic Hospital course: Mr. Montes is a 86 year old male with history of end-stage renal disease, hypertension was has a complaint of left knee pain. Patient notes he has been battling left knee pain and swelling last week. Patient notes he was seen at the [facility] and had a left lower extremity ultrasound that was negative for DVT. Patient notes that he does have history of osteoarthritis of bilateral knees. Patient was afebrile upon presentation. Laboratory workup was consistent with end-stage renal disease. The patient underwent x-ray of the knee which showed osteoarthritis with joint effusion with no actual. The patient was admitted as he was unable to ambulate. Orthopedics were consulted and believed it was osteoarthritis exacerbation. He has had steroids injections in the past and received one by orthopedics here. The following morning he was able to flex his knee and was able to get discharged. The patient was resumed on dialysis with nephrology consulted while hospitalized. He was discharged on 07/07. - Time Spent with Patient Total time spent providing and/or coordinating discharge services: Greater than 30 minutes - Discharge Medications Home Medications: Aspirin Enteric Coated [Aspirin EC] 81 mg PO QAM 03/08/15 [History] Calcium Acetate [Phos-LO] 667 mg PO DAILY 03/08/15 [History] Cetirizine HCl [Zyrtec] 10 mg PO DAILY 07/05/17 [History] Cholecalciferol (D-3) [Vitamin D] 1,000 unit PO DAILY 07/05/17 [History] Cinacalcet [Sensipar] 30 mg PO MOWEFR 07/05/17 [History] Folic Acid/Vit Bcomp,C [Dialyvite Tablet] 1 tab PO DAILY 07/05/17 [History] Metoprolol [Lopressor] 25 mg PO BID 07/05/17 [History] Allergies/Adverse Reactions: 3 Allergy/AdvReac Type Severity Reaction Status Date / Time No Known Allergies Allergy Verified 03/04/15 13:13 Date of admission: 07/05/17 06:50 Primary care physician: Neno Allen Consults: 07/05/17 08:30 Consult to Dialysis [CONS] ONCE 07/05/17 08:44 Consult to Orthopedic Surgery [CONS] Routine Consulting Provider: Eliseo Cummings Reason for Consult: left knee effusion Time Notified: 08:45 Call Completed: Yes 07/07/17 08:30 Consult to Dialysis [CONS] ONCE - Constitutional Vitals: Temp Pulse Resp BP Pulse Ox 97.6 F 81 16 129/61 97 07/07/17 07:08 07/07/17 07:08 07/07/17 07:08 07/07/17 07:08 07/07/17 07:08 Exam: GEN: NAD CVS: RRR. S1, S2, No m/r/g RESP: CTAB ABD: Soft, NT, ND, +BS EXT: Bilateral knee swelling noted more prominent on the left knee medially.. 2 + DP. No rashes NEURO: Nonfocal - Patient Status Disposition: Home, Self-Care Condition: Fair Overall status at discharge: patient is progressing back to baseline - Discharge Instructions Instructions: Atrial Fibrillation (DC), Osteoarthritis (DC), Pneumonia (DC) Follow Up With: Rolando Mack DO [Primary Care Provider] - 07/15/17 1:30 pm (Please follow up as schedule...) Forms: ED Satisfaction Letter - Diet and Activity Activity: increase activity as tolerated Diet: low salt diet
[2017-07-07] MEDS: Cholecalciferol (D-3) 1,000 UNIT TABLET PO SCH (09:24)
[2017-07-07] MEDS: Multivit/Ca/Min/Fe/FA 1 TAB TABLET PO SCH (09:24)
[2017-07-07] MEDS: Loratadine 10 MG TABLET PO SCH (09:24)
[2017-07-07] MEDS: Aspirin Enteric Coated 81 MG Tablet PO SCH (09:24)
[2017-07-07] MEDS: Calcium Acetate 667 MG CAPSULE PO SCH (09:24)
--- NOTE | 2017-07-07 10:27 | Physician Discharge Referral ---
Home Health/Hosp Referral Info Transfer to: Home Health - Diagnosis (1) Knee effusion, left Priority: Primary Status: Acute (2) Atrial fibrillation Priority: Secondary Status: Acute (3) Anemia Priority: Secondary Status: Chronic (4) ESRD (end stage renal disease) Priority: Secondary Status: Chronic - Respiratory Orders Smoking Cessation: Smoking cessation has been advised. For more information, call the [place] Tobacco Quit Line at 8-831-DUXX-NOW. - Services Needed Following services are medically necessary services: Home Health Aide - Transfer Medications Home Medications: Aspirin Enteric Coated [Aspirin EC] 81 mg PO QAM 03/08/15 [History] Calcium Acetate [Phos-LO] 667 mg PO DAILY 03/08/15 [History] Cetirizine HCl [Zyrtec] 10 mg PO DAILY 07/05/17 [History] Cholecalciferol (D-3) [Vitamin D] 1,000 unit PO DAILY 07/05/17 [History] Cinacalcet [Sensipar] 30 mg PO MOWEFR 07/05/17 [History] Folic Acid/Vit Bcomp,C [Dialyvite Tablet] 1 tab PO DAILY 07/05/17 [History] Metoprolol [Lopressor] 25 mg PO BID 07/05/17 [History] Allergies/Adverse Reactions: 3 Allergy/AdvReac Type Severity Reaction Status Date / Time No Known Allergies Allergy Verified 03/04/15 13:13 Certification: Further, I certify that my clinical findings support that this patient is homebound (i.e. absences from home require considerable and taxing effort and are for medical reasons or hindu services or infrequently or short duration when for other reasons) because: Homebound Reason: Patient requires assistance of a person or device to safely leave home Attestation: My signature below is to certify that this patient is under my care and that I, or nurse practitioner, or a physician's construction administrative assistant working with me, has a face-to -face encounter with this patient.
[2017-07-07] MEDS ORDERED: 0.9 % Sodium Chloride 1,000 ML ONE (13:30)
[2017-07-07 18:14] VITALS: BP 107/52
== END 2017-07-07 18:03 | disposition home or self-care (01) ==
LOC: EMEROO 04:36 → 2ANU 04:36
PROVIDERS: ADMIT Internal Medicine; ATTEND Internal Medicine

== ENCOUNTER 2019-12-24 13:54 | Inpatient (IN) ==
[2019-12-24 14:42] LABS: Basophils % 0.8 %; Eosinophils # 0.1 K/mcL (0.0-0.6); Eosinophils % 1.3 %; Hematocrit 32.4 % (37.5-50.1); Hemoglobin 10.1 g/dL (12.9-16.9); Immature Granulocytes % 0.2 % (0-4); Lymphocytes # 0.4 K/mcL (0.6-4.6); Lymphocytes % 6.8 %; Mean Corpuscular HGB Conc 31.2 g/dL (31.6-35.5); Mean Corpuscular Hemoglobin 32.8 pg (28.0-33.3); Mean Corpuscular Volume 105.2 fL (83.0-100.0); Mean Platelet Volume 9.8 fL (9.4-12.4); Monocytes # 0.4 K/mcL (0.0-1.3); Monocytes % 6.6 %; Neutrophils # 4.5 K/mcL (1.6-8.9); Platelet Count 143 K/mcL (140-400); Red Blood Count 3.08 M/mcL (4.19-5.50); Red Cell Distribution Width 15.6 % (11.5-14.5); Segmented Neutrophils % 84.3 %; White Blood Count 5.3 K/mcL (4.3-11.1)
[2019-12-24 14:56] LABS: VBG HCO3 25 mEq/L (21-27); VBG PCO2 29 mmHg (41-51); VBG PH 7.55 pH Units (7.32-7.42); VBG PO2 231 mmHg (25-50)
[2019-12-24 15:07] LABS: Albumin 2.7 g/dL (3.5-5.7); Albumin/Globulin Ratio 0.7 (1.1-2.2); Bilirubin,Direct 2.3 mg/dL (0.0-0.2); Bilirubin,Indirect 1.7 mg/dL (0.0-1.0); Calcium 8.4 mg/dL (8.6-10.3); Globulin 3.8 g/dL (2.4-3.5); Potassium 3.2 mEq/L (3.5-5.1); Total Protein 6.5 g/dL (6.4-8.9); Troponin I 0.03 ng/mL (< 0.04)
[2019-12-24] MEDS ORDERED: Piperacillin/Tazobactam 3.375 GM in 0.9 % Sodium Chloride Mini Bag 100 ML IVPB ONE (18:06)
[2019-12-24] MEDS ORDERED: 0.9 % Sodium Chloride 250 ML ONE (18:18)
[2019-12-24] MEDS ORDERED: 0.9 % Sodium Chloride 250 ML IVC ONE (18:19)
[2019-12-24] MEDS ORDERED: Naloxone 0.4 MG/ML INJ IVP PRN (21:23)
[2019-12-24] MEDS ORDERED: Potassium Chloride 40 MEQ, Lidocaine 1% 2 ML in 0.9 % Sodium Chloride 500 ML IVPB ONE (22:00)
[2019-12-24] MEDS ORDERED: 0.9 % Sodium Chloride 500 ML IVC ONE (23:51)
[2019-12-25 02:44] LABS: Hematocrit 31.6 % (37.5-50.1); Hemoglobin 9.8 g/dL (12.9-16.9); Mean Corpuscular Hemoglobin 32.6 pg (28.0-33.3); Platelet Count 135 K/mcL (140-400); Red Blood Count 3.01 M/mcL (4.19-5.50); Red Cell Distribution Width 15.9 % (11.5-14.5); White Blood Count 4.6 K/mcL (4.3-11.1)
[2019-12-25 02:48] LABS: INR 1.2; Prothrombin Time 13.5 Seconds (9.4-12.1)
[2019-12-25 03:04] LABS: Albumin 2.5 g/dL (3.5-5.7); Albumin/Globulin Ratio 0.7 (1.1-2.2); Bilirubin,Total 2.6 mg/dL (0.3-1.0); Calcium 8.1 mg/dL (8.6-10.3); Globulin 3.5 g/dL (2.4-3.5); Magnesium 1.7 mg/dL (1.6-2.6); Phosphorous 4.3 mg/dL (2.7-4.5); Potassium 3.6 mEq/L (3.5-5.1)
[2019-12-25] MEDS ORDERED: 0.9 % Sodium Chloride 500 ML IVC ONE (03:22)
[2019-12-25] MEDS: Albumin 25% 25gram/100mL 25 GM/100 ML IV.SOLN IVC SCH ×2 (04:53→06:52)
[2019-12-25] MEDS: Piperacillin/Tazobactam 3.375 GM in 0.9 % Sodium Chloride Mini Bag 100 ML IVPB SCH ×2 (06:52→16:12)
[2019-12-25] MEDS ORDERED: *HR* Dextrose 50 % in Water (Vial) 50 ML VIAL IVP ONE ×2 (06:53→09:15)
[2019-12-25] MEDS ORDERED: Albumin 25% 25gram/100mL 25 GM/100 ML IV.SOLN IVPB ONE (09:15)
[2019-12-25] MEDS ORDERED: 0.9 % Sodium Chloride 500 ML ONE (10:10)
[2019-12-25] MEDS: Norepinephrine 4 MG/254 ML IV.SOLN IVC SCH ×2 (10:45→13:25)
[2019-12-25] MEDS ORDERED: *HR* Heparin 5,000 UNIT/ML VIAL ONE (10:50)
[2019-12-25 11:56] LABS: ABG Base Excess -2 mEq/L (-2 to 3); ABG HCO3 27 mEq/L (21-27); ABG Oxygen Saturation 98 % (95-98); ABG PCO2 62 mmHg (35-45); ABG PH 7.25 pH Units (7.32-7.45); ABG PO2 123 mmHg (85-104); ABG TCO2 29 mEq/L (20-26)
[2019-12-25] MEDS: Aspirin Enteric Coated 81 MG Tablet PO SCH (13:38)
[2019-12-25] MEDS: Calcium Acetate 667 MG CAPSULE PO SCH (13:38)
[2019-12-25] MEDS: Renal Vitamin 1 CAP CAPSULE PO SCH (13:38)
[2019-12-25] MEDS ORDERED: *HR* Heparin 5,000 UNIT/ML VIAL IVP ONE (13:39)
[2019-12-25] MEDS ORDERED: *HR* Heparin 5,000 UNIT/ML VIAL IVP PRN ×2 (13:39)
[2019-12-25] MEDS ORDERED: Heparin 25,000UNIT/250ML 1/2NS 25,000 UNIT/250 ML IV.SOLN IVC SCH (13:45)
[2019-12-25 14:21] LABS: Hematocrit 30.5 % (37.5-50.1); Hemoglobin 9.6 g/dL (12.9-16.9); Mean Corpuscular HGB Conc 31.5 g/dL (31.6-35.5); Mean Corpuscular Volume 104.8 fL (83.0-100.0); Mean Platelet Volume 10.3 fL (9.4-12.4); Platelet Count 164 K/mcL (140-400); Red Blood Count 2.91 M/mcL (4.19-5.50)
[2019-12-25 14:22] LABS: Heparin anti-factor XA UFH < 0.04 IU/mL (0.30-0.70); INR 1.3; Prothrombin Time 14.6 Seconds (9.4-12.1)
[2019-12-25] MEDS ORDERED: Perflutren Lipid Microsphere 1.3 ML in 0.9 % Sodium Chloride 8.7 ML IVP PRN (14:41)
[2019-12-25] MEDS ORDERED: Azithromycin 500 MG in 0.9 % Sodium Chloride 250 ML IVPB SCH (15:00)
[2019-12-25] MEDS: Vasopressin 40 UNIT in D5% in Water 100 ML IVC SCH (15:26)
[2019-12-25] MEDS: Albumin 25% 25gram/100mL 25 GM/100 ML IV.SOLN IVPB SCH (15:33)
[2019-12-25] MEDS: Norepinephrine 8 MG in 0.9 % Sodium Chloride 250 ML IVC SCH ×2 (15:59→20:35)
[2019-12-25] MEDS: Hydrocortisone Sodium Succ 100 MG/2 ML VIAL IVP SCH (16:07)
[2019-12-25] MEDS: Doxycycline 100 MG in 0.9 % Sodium Chloride Mini Bag 100 ML IVPB SCH (16:20)
[2019-12-25] MEDS ORDERED: Isovue-370 500 ML BOTTLE IVP ONE (17:01)
[2019-12-26] MEDS: Albumin 25% 25gram/100mL 25 GM/100 ML IV.SOLN IVPB SCH (00:23)
[2019-12-26] MEDS: Hydrocortisone Sodium Succ 100 MG/2 ML VIAL IVP SCH ×3 (00:23→16:23)
[2019-12-26] MEDS: Norepinephrine 8 MG in 0.9 % Sodium Chloride 250 ML IVC SCH ×3 (01:40→11:11)
[2019-12-26 04:26] LABS: Basophils % 0.1 %; Eosinophils % 0.1 %; Hematocrit 30.3 % (37.5-50.1); Immature Granulocytes % 0.6 % (0-4); Lymphocytes # 0.2 K/mcL (0.6-4.6); Lymphocytes % 1.2 %; Mean Corpuscular HGB Conc 29.7 g/dL (31.6-35.5); Mean Corpuscular Hemoglobin 32.8 pg (28.0-33.3); Mean Corpuscular Volume 110.6 fL (83.0-100.0); Mean Platelet Volume 10.1 fL (9.4-12.4); Monocytes # 0.5 K/mcL (0.0-1.3); Monocytes % 3.2 %; Neutrophils # 14.4 K/mcL (1.6-8.9); Nucleated Red Blood Cells 0.3 /100 WBC (0); Platelet Count 177 K/mcL (140-400); Red Blood Count 2.74 M/mcL (4.19-5.50); Red Cell Distribution Width 16.4 % (11.5-14.5); Segmented Neutrophils % 94.8 %
[2019-12-26 04:33] LABS: White Blood Count 15.2 K/mcL (4.3-11.1)
[2019-12-26 04:41] LABS: Calcium 8.4 mg/dL (8.6-10.3); Potassium 4.4 mEq/L (3.5-5.1)
[2019-12-26 05:41] LABS: Anisocytosis 1+ (Not Present); Platelet Estimate Normal (Normal)
[2019-12-26] MEDS: Piperacillin/Tazobactam 3.375 GM in 0.9 % Sodium Chloride Mini Bag 100 ML IVPB SCH (05:52)
[2019-12-26] MEDS: Doxycycline 100 MG in 0.9 % Sodium Chloride Mini Bag 100 ML IVPB SCH (05:58)
[2019-12-26] MEDS: Vasopressin 40 UNIT in D5% in Water 100 ML IVC SCH (06:33)
[2019-12-26 07:04] LABS: Albumin/Globulin Ratio 1.5 (1.1-2.2); Bilirubin,Direct 2.1 mg/dL (0.0-0.2); Bilirubin,Indirect 1.3 mg/dL (0.0-1.0); Bilirubin,Total 3.4 mg/dL (0.3-1.0); Globulin 2.6 g/dL (2.4-3.5); Total Protein 6.6 g/dL (6.4-8.9)
[2019-12-26] MEDS: Calcium Acetate 667 MG CAPSULE PO SCH (08:25)
[2019-12-26] MEDS: Renal Vitamin 1 CAP CAPSULE PO SCH (08:25)
[2019-12-26] MEDS: Aspirin Enteric Coated 81 MG Tablet PO SCH (08:25)
[2019-12-26] MEDS ORDERED: Calcium Gluconate 1gm/50mL 1 GM/50 ML BAG IVPB PRN ×2 (10:25)
[2019-12-26] MEDS ORDERED: *HR* Heparin 5,000 UNIT/ML VIAL HE PRN (10:25)
[2019-12-26] MEDS ORDERED: Calcium Chloride 4,000 MG in 0.9 % Sodium Chloride 1,000 ML CRRT SCH (10:30)
[2019-12-26] MEDS ORDERED: PrismaSATE BGK 4/2.5 5,000 ML CRRT SCH ×2 (10:30)
[2019-12-26] MEDS ORDERED: 0.9 % Sodium Chloride 1,000 ML PRIME SCH (10:30)
[2019-12-26] MEDS ORDERED: Artificial Tears SOLN 15 ML BOTTLE BOTH EYES PRN (10:43)
[2019-12-26] MEDS ORDERED: Chlorhexidine Rinse 15 ML MOUTHWASH MM SCH (10:45)
[2019-12-26] MEDS ORDERED: 0.9 % Sodium Chloride 500 ML ONE (10:46)
[2019-12-26] MEDS ORDERED: *HR* LORazepam 2 MG/ML VIAL IVP PRN (12:02)
[2019-12-26] MEDS ORDERED: Atropine Sulfate 1% 40 DROP/2 ML BOTTLE SL PRN (12:02)
[2019-12-26] MEDS ORDERED: *HR* FentaNYL (PF) 100 MCG/2 ML VIAL IVP PRN (12:03)
[2019-12-26] MEDS: Artificial Tears SOLN 15 ML BOTTLE BOTH EYES SCH ×3 (12:13→18:45)
[2019-12-26] MEDS: *HR* FentaNYL (PF) 100 MCG/2 ML VIAL IVP PRN ×2 (12:18→21:43)
[2019-12-26 19:15] VITALS: BP 55/18
== END 2019-12-26 23:35 | disposition expired | DRG 444 ==
LOC: 2ANU 13:54 → EMEROOARM 13:54 → 2ANU 20:19 → ICNU 12-25 05:17
PROVIDERS: ADMIT Internal Medicine; ATTEND Internal Medicine